=== PATIENT | female | born 1995 | race Caucasian/White ===

== ENCOUNTER 2017-09-19 17:19 | Inpatient (IN) | payer OTHER, BC ==
[2017-09-19 18:31] LABS: #Basophils 0.1 thou/uL (0.0-0.2); #Eosinphils 0.3 thou/uL (0.0-0.7); #Lymphocytes 3.7 thou/uL (1.20-3.40); #Monocytes 0.6 thou/uL (0.11-0.59); #Neutrophils 10.4 thou/uL (1.40-6.50); %Basophils 0.8 % (0.0-1.0); %Lymphocytes 24.3 % (21.0-51.0); %Monocytes 3.7 % (0.0-10.0); %Neutrophils 69.2 % (42.0-75.0); Hemoglobin 13.8 g/dL (12.0-16.0); Mean Corpuscular Hemoglobin 31.2 pg (27.0-31.0); Mean Corpuscular Volume 94.6 fl (81.0-99.0); Mean Platelet Volume 6.8 fL (7.4-10.4); Platelet Count 375 thou/uL (130-400); RBC Distribution Width 11.5 % (11.5-14.5); Red Blood Cell (RBC) Count 4.41 mill/uL (4.20-5.40)
[2017-09-19 18:51] LABS: ALT (SGPT) 13 U/L (8-55); AST (SGOT) 20 U/L (5-34); Albumin 4.6 g/dL (3.5-5.0); Alkaline Phosphatase 90 U/L (40-150); Anion Gap 12 mmol/L (10-20); BUN (Urea Nitrogen) 9 mg/dL (7.0-18.7); Bilirubin, Total 0.4 mg/dL (0.2-1.2); Calc. Creatinine Clearance 0 mL/min (70-130); Calcium 9.5 mg/dL (7.8-10.44); Carbon Dioxide 27 mmol/L (22-29); Chloride 101 mmol/L (98-107); Estimated GFR-MDRD 76; Globulin 3.4 g/dL (2.4-3.5); Glucose 113 mg/dL (70-105); Potassium 3.9 mmol/L (3.5-5.1); Sodium 136 mmol/L (136-145)
[2017-09-19] MEDS ORDERED: Morphine 4 MG/ML VIAL ONE (21:34)
[2017-09-19] MEDS ORDERED: cefTRIAXone\\ROCEPHIN 2 GM VIAL ONE (21:58)
[2017-09-20] MEDS ORDERED: Morphine 4 MG/ML VIAL SLOW IVP PRN (00:03)
[2017-09-20] MEDS ORDERED: Ondansetron ODT 4 MG TAB SL PRN (00:03)
[2017-09-20] MEDS ORDERED: Ondansetron HCl/PF 4 MG/2 ML Vial IVP PRN (00:03)
[2017-09-20] MEDS: Sodium Chloride 0.9% 1,000 ML IV SCH ×4 (01:01→16:23)
[2017-09-20] MEDS: HYDROcodone/Acetaminophen 5/325 mg Tablet PO PRN ×4 (02:10→21:03)
[2017-09-20 03:01] VITALS: BMI 20.7
[2017-09-20] MEDS: Ibuprofen 200 MG TAB PO PRN ×3 (04:48→19:45)
[2017-09-20] MEDS ORDERED: Phenazopyridine HCl 97.5 MG TABLET PO PRN (08:09)
[2017-09-20] MEDS ORDERED: Mag-Al 1200 mg/1200 mg/30 ML UDCUP PO PRN (08:09)
--- NOTE | 2017-09-20 09:17 | HP ---
PRIMARY CARE PHYSICIAN: Dr. Kyrie Eng CHIEF COMPLAINT: Urinary tract infection, fevers, chills, nausea, failed outpatient treatment. HISTORY OF PRESENT ILLNESS: This is a 22-year-old female patient with a history of frequent hospital izations for pyelonephritis. She has a history of vesicoureteral reflux with 2 implantation surgerie s in the past who first presented to Urgent Care about 8-10 days ago for urinary tract infection symp toms. She was given a dose of Rocephin and started on Cipro. After 3-4 days she got the culture elizabeth k and they called back and switched her antibiotics to Macrobid for E. coli bacteria that was resista nt to Cipro. Her symptoms continued to worsen. She developed chills, back pain and her typical symp toms of pyelonephritis. She first presented to the office and was sent to the emergency department f or admission at that time. She was given a dose of Rocephin in the emergency department and IV fluid s and she is feeling some better at this point. She is becoming more and more frustrated with these frequent episodes of pyelonephritis and wants to perform further workup at this time. Of note, she has been followed by Urology, Dr. Snider. She has had tests ordered in the past, b ut was not able to proceed with them due to cost and she is now willing to have those done. PAST MEDICAL HISTORY: 1. Again, urinary tract infection for many years, followed by Dr. Snider for Urology. 2. History of vesicoureteral reflux with history of 2 implantation surgeries in the past. 3. Polyarthralgias. 4. Anxiety and depression. MEDICATIONS: Sertraline 100 mg daily. She had been on Levaquin, but not anymore. PAST SURGICAL HISTORY: Implantation surgery for vesicoureteral reflux x2. ALLERGIES: None known. SOCIAL HISTORY: She lives at home with her mom and aunt. She is not working at this time. Positive smoking, no alcohol, occasional marijuana use. She has been sexually active. REVIEW OF SYSTEMS: As per the history of present illness. She denies any fevers, but has had chills . HEENT: No headache, visual or hearing changes. CARDIAC: No chest pain, shortness of breath. PULMONARY: No cough or hemoptysis. GASTROINTESTINAL: Positive nausea, no vomiting. : As per the history of present illness. NEUROLOGIC: No weakness, seizures, or syncope. PHYSICAL EXAMINATION: VITAL SIGNS: Temperature 98.1. Her T-max is 98.4, pulse of 65, respirations 20, blood pressure 140/ 91, pulse ox is 100% on room air. GENERAL: She is awake and alert, in no acute distress. Speech is clear. Mucosa is moist. NECK: Supple. HEART: Regular rate and rhythm. LUNGS: Clear. ABDOMEN: Soft. Positive CVA tenderness on the left. EXTREMITIES: No edema. LABORATORY DATA: White blood cell count 15,000, hemoglobin and hematocrit 13.8 and 41.8, platelets o f 375. Sodium 136, potassium 3.9, chloride 101, CO2 of 27, BUN and creatinine 9 and 0.93, serum gluc ose of 113. Lactic acid was normal at 1.4. Liver enzymes were normal as well. ASSESSMENT: This is a 22-year-old female patient with a history of vesicoureteral reflux status post surgical correction in the past and history of recurrent urinary tract infections and pyelonephritis , now with a recurrent episode. 1. We will continue IV antibiotics including Rocephin 1 gram daily. Await repeat cultures. 2. Vesicoureteral reflux. We will consult Urology for further evaluation, hopefully to be able to o btain a definitive treatment and prevention for her recurrent episodes. 3. Anxiety, depression. We will continue her Zoloft at this time.
[2017-09-20] MEDS: cefTRIAXone\\ROCEPHIN 2 GM in Sodium Chloride 0.9% 100 ML IVPB SCH (22:39)
--- NOTE | 2017-09-20 23:51 | CON ---
DATE OF CONSULTATION: 09/20/2017 REASON FOR CONSULTATION: Recurrent pyelonephritis. HISTORY OF PRESENT ILLNESS: Ms. Tello is a 22-year-old female who has a history of vesicoureteral reflux. She had surgery twice for her reflux, once at approximately 6 months of age and once at approximately 4 years of age. She now states that she has infections approximately 4-5 times a year. She has had hospital admissions for infections. Most recent admission was in 01/2017. Last week she developed urinary frequency, urgency and bladder pain. She was seen at [facility] and urine culture was performed and she began taking Cipro. Her urine culture demonstrated E. coli and it was resistant to Cipro, so this antibiotic was discontinued and Macrobid was initiated. She felt somewhat better, but she began developng bilateral flank pain L>R, despite the antibiotic therapy. For this reason, she presented to the emergency room. This is a common indication for admission for her and that her kidney pain can worsen to the point that she needs narcotic pain medication. Her left-sided pain is greater than the right-sided pain, although she does have bilateral flank pain. She has not had recent urologic workup. She was seen by Dr. Snider in 01/2017 during her last admission and also in 12/2015, however, Dr. Snider states she will no longer provide care for this patient due to the patients lack of compliance. PAST MEDICAL HISTORY: Polyarthralgias, anxiety, recurrent urinary tract infections. CURRENT MEDICATIONS: Zoloft 100 mg daily. PAST SURGICAL HISTORY: Bilateral ureteral reimplant surgery at age approximately 6 months and also at approximately 4 years. SOCIAL HISTORY: She denies alcohol use. She does smoke cigarettes. She is sexually active. REVIEW OF SYSTEMS: RESPIRATORY: Denies shortness of breath. CARDIOVASCULAR: Denies chest pain or palpitation. GASTROINTESTINAL: Denies chronic constipation or diarrhea. GENITOURINARY: Please see history of present illness. NEUROLOGIC: She has a history of depression, but no other neurologic diseases. PHYSICAL EXAMINATION: GENERAL: She is awake and alert. She is in no distress. VITAL SIGNS: Temperature 99.2, blood pressure 138/82, pulse 82. GENERAL: She appears healthy, in no distress. CHEST: Clear to auscultation. CARDIOVASCULAR: Regular rate and rhythm. ABDOMEN: Soft, nontender, no palpable masses. Liver and spleen are palpable. No abdominal tenderness noted. Mild tenderness on palpation left flank. LABORATORY DATA: White blood cell count on admission 15,000. Creatinine 0.93. Urine culture on 09/11/2017 was 10-25,000 colonies E. coli sensitive to amikacin , cefepime, ceftriaxone, cefoxitin, gentamicin, meropenem, Macrobid, Zosyn, tobramycin, resistant to Bactrim, cipro and ampicillin. IMPRESSION: Ms. Tello is a 22-year-old female with recurrent urinary tract infection and prior history of vesicoureteral reflux. She has not had recent evaluation urinary tract from an imaging standpoint. PLAN: 1. CT IVP to evaluate upper urinary tracts. 2. Begin an antibiotic prophylactic regimen if no correctable sources of recurrent urinary tract infections noted on the CT IVP. MAYLIND
[2017-09-21] MEDS: Sodium Chloride 0.9% 1,000 ML IV SCH ×2 (01:54→08:54)
[2017-09-21] MEDS: HYDROcodone/Acetaminophen 5/325 mg Tablet PO PRN ×4 (06:25→21:44)
[2017-09-21 08:48] LABS: BHCG - Serum Negative (NEGATIVE); Pregs Control Background? CLEAR/WHITE (CLR/WHITE); Pregs Control Bar Appear? YES (CONTROL BAR)
[2017-09-21] MEDS ORDERED: hydrOXYzine 25 MG TAB PO PRN (09:00)
[2017-09-21] MEDS ORDERED: Promethazine 25 MG TAB PO PRN (11:38)
[2017-09-21] MEDS ORDERED: Promethazine HCl 25 MG/ML VIAL IM/IV PRN (11:38)
[2017-09-21] MEDS ORDERED: ISOVUE-370 76%-LOCM 1 ML ONE (13:23)
[2017-09-21] MEDS: Ibuprofen 200 MG TAB PO PRN (14:00)
--- NOTE | 2017-09-21 17:08 | CT ---
CT OF THE ABDOMEN AND PELVIS WITH AND WITHOUT IV CONTRAST: 09/21/17 INDICATION; Recurrent pyelonephritis. COMPARISON: None. FINDINGS: There is edematous changes and mild hypertrophy involving the right kidney. No definite striated neph rogram is grossly evident. No hydronephrosis is noted. No renal stone is demonstrated. There is corti esvin thinning involving portions of the left kidney which may reflect sequela of prior trauma or infec tion. Unopacified bladder is unremarkable. There is a 1.8 cm cyst within the right ovary. Mild free fluid i s seen within the pelvis. Small amount of free fluid is seen in the lower aspect of the colonic gutte rs. There is a moderate amount of retained stool within the colon. The cecum crosses midline within t he lower abdomen. The appendix is not definitely seen. The liver, spleen, pancreas and adrenal glands appear normal. There are layered gallstones in the ga llbladder. No lymphadenopathy is evident. No free air is demonstrated. No acute osseous abnormality is evident. IMPRESSION: 1. Edematous changes and hypertrophy of the right kidney on the noncontrast examination with luisa y mild perinephric stranding is suspicious for pyelonephritis. 2. Layered gallstones within the gallbladder. 3. There is thinning involving portions of the cortex of the left kidney suspicious for prior tr auma or infection. 4. Mild free fluid within the pelvis. 5. 1.8 cm right ovarian follicular cyst. POS: [facility]
--- NOTE | 2017-09-21 17:32 | RAD ---
IVP: 09/21/17 INDICATION: Recurrent pyelonephritis. COMPARISON: CT IVP examination 09/21/17, 4:46 p.m. FINDINGS: There is symmetric bilateral renal excretion seen at 5 minutes. The segmentally opacified left ureter appears within normal limits. The segmentally opacified right ureter on the LPO 10 minute projection appears within normal limits. No focal filling defect, stricture or hydronephrosis is evident. The visualized aspects of the opacified bladder appear within normal limits. There is mild postvoid r esidual seen within the renal collecting systems and bladder. The visualized bowel gas pattern is unobstructed. No acute osseous abnormality is evident. IMPRESSION: No focal filling defect, stricture, or hydronephrosis involving the renal collecting systems. POS: [facility]
[2017-09-21] MEDS ORDERED: Morphine 4 MG/ML VIAL SLOW IVP SCH (18:45)
[2017-09-21] MEDS: cefTRIAXone\\ROCEPHIN 2 GM in Sodium Chloride 0.9% 100 ML IVPB SCH (21:44)
[2017-09-21] MEDS: Ketorolac Tromethamine 10 MG TAB PO SCH (23:58)
[2017-09-21] MEDS: traZODone HCl 50 MG TAB PO PRN (23:58)
--- NOTE | 2017-09-22 00:24 | PRG ---
DATE OF SERVICE: 09/21/2017 HISTORY OF PRESENT ILLNESS: The patient states she continues to have flank pain and abdomen pain nichole pite continuation of home Pierce doses. This on day 2 of Rocephin regarding recurrent pyelonephritis. Urology has recommended CT with IVP protocol for structural analysis as the patient stabilized no a cute findings on imaging, recommending prophylaxis in the future. PHYSICAL EXAMINATION: VITAL SIGNS: Temperature of 97.5, pulse of 60, respiratory rate of 18, oxygen saturation 97% on room air, blood pressure 133/88. GENERAL: The patient is alert and oriented, in no acute distress. HEENT: Head is normocephalic, atraumatic. Extraocular movements are intact. Sclerae is clear. Ora l mucosa is moist. HEART: Regular rate and rhythm. LUNGS: Clear to auscultation bilaterally. No rubs or wheezes. ABDOMEN: Soft, nontender, positive bowel sounds throughout. EXTREMITIES: Lower extremities without cyanosis or edema. No formal CVA tenderness. Patient report s some left-sided back pain with palpation; however, the patient requesting something for sleep, typi lala uses NyQuil or ZzzQuil. Nursing staff reported some nausea. ASSESSMENT AND PLAN: Recurrent pyelonephritis, flank pain, nausea, insomnia. Continuing patient's h ome medications, adding hydroxyzine for sleep. Transitioning ibuprofen and Toradol. We will monitor renal function in a.m. with some repeat laboratory work, continue Rocephin, following up on any jaron tional recommendations from Neurology as no further interventions, likely discharge home tomorrow.
[2017-09-22 05:24] LABS: #Basophils 0.1 thou/uL (0.0-0.2); #Eosinphils 0.4 thou/uL (0.0-0.7); #Lymphocytes 3.8 thou/uL (1.20-3.40); #Monocytes 0.5 thou/uL (0.11-0.59); #Neutrophils 5.9 thou/uL (1.40-6.50); %Basophils 0.5 % (0.0-1.0); %Eosinophils 3.9 % (0.0-10.0); %Lymphocytes 35.6 % (21.0-51.0); %Monocytes 4.5 % (0.0-10.0); %Neutrophils 55.4 % (42.0-75.0); Hemoglobin 12.5 g/dL (12.0-16.0); Mean Corpuscular HGB CONC 32.9 g/dL (32.0-36.0); Mean Corpuscular Volume 94.3 fl (81.0-99.0); Mean Platelet Volume 6.7 fL (7.4-10.4); Platelet Count 320 thou/uL (130-400); RBC Distribution Width 11.7 % (11.5-14.5); Red Blood Cell (RBC) Count 4.02 mill/uL (4.20-5.40); White Blood Cell (WBC) Count 10.7 thou/uL (4.8-10.8)
[2017-09-22] MEDS: Ketorolac Tromethamine 10 MG TAB PO SCH ×4 (05:43→23:49)
[2017-09-22 05:59] LABS: ALT (SGPT) 11 U/L (8-55); AST (SGOT) 14 U/L (5-34); Albumin 3.6 g/dL (3.5-5.0); Alkaline Phosphatase 74 U/L (40-150); Anion Gap 11 mmol/L (10-20); BUN (Urea Nitrogen) 8 mg/dL (7.0-18.7); Bilirubin, Total 0.2 mg/dL (0.2-1.2); Calc. Creatinine Clearance 88 mL/min (70-130); Calcium 9.1 mg/dL (7.8-10.44); Carbon Dioxide 27 mmol/L (22-29); Chloride 106 mmol/L (98-107); Estimated GFR-MDRD Greater than 90; Globulin 2.6 g/dL (2.4-3.5); Glucose 83 mg/dL (70-105); Potassium 3.8 mmol/L (3.5-5.1); Protein, Total 6.2 g/dL (6.0-8.3); Sodium 140 mmol/L (136-145)
[2017-09-22] MEDS ORDERED: hydrOXYzine 25 MG TAB PO PRN (07:57)
[2017-09-22] MEDS: HYDROcodone/Acetaminophen 5/325 mg Tablet PO PRN ×2 (14:52→22:20)
[2017-09-22] MEDS: cefTRIAXone\\ROCEPHIN 2 GM in Sodium Chloride 0.9% 100 ML IVPB SCH (22:21)
--- NOTE | 2017-09-22 23:24 | PRG ---
DATE OF SERVICE: 09/22/2017 CHIEF COMPLAINT: She had a severe episode of right-sided flank pain yesterday. SUBJECTIVE: She is feeling better now. OBJECTIVE: VITAL SIGNS: T-max 99, blood pressure 120/82, pulse 82, respiratory rate 16. ABDOMEN: Soft, nontender, no CVA tenderness. IMPRESSION: Ms. Tello is status post CCIVP. Her urinary tract drains well. There is no hydronephr osis or ureteronephrosis. This suggests she has minimal or no persistent vesicoureteral reflux. The re is no stone disease. RECOMMENDATIONS: Continue IV antibiotic therapy until she is feeling well. After discharge, she mark l be maintained on long-term antibiotic prophylactic therapy with Macrobid 1 p.o. daily. We will als o arrange for a standing urine culture request, so this can be done if she develops any symptoms. Th ere is no surgical recommendations based on her normal anatomy. I have discussed this with both the patient and with her mom.
[2017-09-22] MEDS: traZODone HCl 50 MG TAB PO PRN (23:50)
--- NOTE | 2017-09-23 01:05 | PRG ---
DATE OF SERVICE: 09/22/2017 HISTORY OF PRESENT ILLNESS: The patient reports better pain control following change from ibuprofen to Toradol and continuation of patient's home hydrocodone. The patient had improved sleep on hydroxy zine last night, feeling better with IV antibiotics, states urology did not come by and nursing staff confirms Urology did not come by yesterday following a CT IVP per request, spoke with the patient in regard to a goal of 3 days of IV antibiotics, likely discharge home tomorrow on oral agents. No fur ther recommendations from Urology. Vital signs this morning temperature 97.7, pulse is 75, respirato ry rate of 16, oxygen saturation 93% on room air, blood pressure 131/80. LABORATORY DATA: White blood cell count of 10.7, improved; hemoglobin of 12.5; platelet count of 320 ,000, glucose 83. Sodium 140, potassium of 3.8, CO2 of 27, creatinine of 0.77. AST of 14, ALT of 11 . Serum test negative. Currently likely right pyelonephritis and left-sided likely scar t issue following previous pyelonephritis found on CT abdomen and pelvis. IVP protocol did not show an y significant reflux. PHYSICAL EXAMINATION: GENERAL: The patient is alert and oriented, in no acute distress. HEENT: Head is normocephalic, atraumatic. Extraocular movements are intact. Sclerae are clear. Or al mucosa is moist. NECK: Supple. LUNGS: Clear to auscultation bilaterally. No rubs or wheezes. HEART: Regular rate and rhythm. No murmurs auscultated. ABDOMEN: Soft, nontender, positive bowel sounds throughout. No CVA tenderness bilaterally. EXTREMITIES: Lower extremities without cyanosis or edema. NEUROLOGIC: The patient alert and oriented x3. No focal deficits. ASSESSMENT AND PLAN: Pyelonephritis, recurrent. Await any further instructions from Urology. Antic ipate likely discharge tomorrow with oral agents. We will attempt to check out to Adam florez
[2017-09-23] MEDS: Ketorolac Tromethamine 10 MG TAB PO SCH (06:07)
--- NOTE | 2017-09-23 08:22 | DIS ---
DATE OF ADMISSION: 09/19/2017 DATE OF DISCHARGE: 09/23/2017 ADMISSION DIAGNOSES: Pyelonephritis, history of recurrent urinary tract infection, history of vesico ureteral efflux. DISCHARGE DIAGNOSIS: Pyelonephritis, resolved. CONSULTATIONS: Dr. Fuentes for Urology. PROCEDURES: CT abdomen and pelvis, intravenous pyelogram, IV antibiotics. HOSPITAL COURSE: This is a 22-year-old female patient with history of frequent episodes and hospital izations for pyelonephritis. She has a history of vesicoureteral reflux with 2 implantation surgerie s in the past, starting at a few months of age. She had a recent admission a few months ago for pyel onephritis. A workup has been attempted as an outpatient, but the patient had refused that due to co st, she is now wanting to have further urological workup. She was admitted and started on IV antibio tics after failed outpatient therapy. She had some improvement of her symptoms with IV Rocephin. Bl ood and urine cultures were done. Dr. Fuentes saw the patient in evaluation and agreed with evaluati on for possible persistent reflux. He recommended a CT IVP, continued antibiotics and recommended lo ng-term antibiotics following discharge. The patient had one episode of more severe pain and urinary urgency. This resolved and for the past 24 hours, she has been feeling much better, no more nausea or vomiting. She is tolerating fluids, minimal pain, tolerating antibiotics and wanted to go home at this point. DISCHARGE PHYSICAL EXAMINATION: VITAL SIGNS: Temperature 98.1, T-max of 98.3, pulse of 70, respirations 18, blood pressure 131/84, p ulse oximetry is 95% on room air. GENERAL: She is awake and alert, in no acute distress. Mucosa is moist. NECK: Supple. HEART: Regular rate and rhythm. LUNGS: Clear. ABDOMEN: With positive bowel sounds, soft, nontender, nondistended. No CVA tenderness. DISCHARGE MEDICATIONS: Include Macrobid 100 mg daily. Continue Zoloft 100 mg daily. FOLLOWUP: Follow up in my office in 1-2 weeks. Follow up with Dr. Fuentes in 2 weeks. He is going to arrange standing orders for urine culture, so if her symptoms start, leave a urine sample and ofe t the urinary tract infection before it progresses to a pyelonephritis in the future.
[2017-09-23 10:16] VITALS: BP 129/83; TEMP 98.5
== END 2017-09-23 10:36 | disposition home or self-care (01) | DRG 690 ==
LOC: ERS 17:19 → 3SE 21:30 → T4-B 09-21 17:22
PROVIDERS: ADMIT Family Medicine; ATTEND Family Medicine
DX: N11.0 Nonobstructive reflux-associated chronic pyelonephritis (principal); B96.20 Unspecified Escherichia coli [E. coli] as the cause of diseases classified elsewhere; M25.50 Pain in unspecified joint; F29 Unspecified psychosis not due to a substance or known physiological condition; F41.9 Anxiety disorder, unspecified; Z79.2 Long term (current) use of antibiotics; F17.210 Nicotine dependence, cigarettes, uncomplicated; F12.90 Cannabis use, unspecified, uncomplicated; G47.00 Insomnia, unspecified; Z16.23 Resistance to quinolones and fluoroquinolones; Z79.899 Other long term (current) drug therapy
CPT/HCPCS: 36415; 74178; 74410; 80053; 83605; 84703; 85025; 87086; 96365; 96375; 99406; A4216; J0696; J2270; J7050

== ENCOUNTER 2017-10-10 17:11 | Observation (INO) | payer OTHER, BC ==
[2017-10-10 17:39] LABS: Bilirubin Negative (Negative); Blood, Urine Negative (Negative); Clarity CLEAR (Clear); Glucose, Urine (Dipstick) Negative (Negative); Leukocyte Negative (Negative); Nitrite Negative (Negative); Protein, Urine (Dipstick) Negative (Neg-Trace); Specific Gravity, Urine 1.008 (1.002-1.036); Urobilinogen 0.2 mg/dL (0.2-1.0); pH, Urine 6.5 (5.0-9.0)
[2017-10-10 17:43] LABS: Pregnancy Test - Urine (BHCG) Negative (Negative); Pregu Control Background? CLEAR/WHITE (CLR/WHITE); Pregu Control Bar Appear? YES (CONTROL BAR); Specific Gravity 1.008 (1.002-1.036)
[2017-10-10 18:38] LABS: #Basophils 0.1 thou/uL (0.0-0.2); #Eosinphils 0.1 thou/uL (0.0-0.7); #Lymphocytes 3.2 thou/uL (1.20-3.40); #Monocytes 0.6 thou/uL (0.11-0.59); #Neutrophils 10.2 thou/uL (1.40-6.50); %Basophils 0.6 % (0.0-1.0); %Eosinophils 0.9 % (0.0-10.0); %Lymphocytes 22.7 % (21.0-51.0); %Monocytes 3.9 % (0.0-10.0); Hemoglobin 13.4 g/dL (12.0-16.0); Mean Corpuscular Hemoglobin 31.7 pg (27.0-31.0); Mean Corpuscular Volume 93.3 fl (81.0-99.0); Mean Platelet Volume 6.7 fL (7.4-10.4); Platelet Count 353 thou/uL (130-400); Red Blood Cell (RBC) Count 4.23 mill/uL (4.20-5.40); White Blood Cell (WBC) Count 14.2 thou/uL (4.8-10.8)
[2017-10-10 18:57] LABS: Anion Gap 13 mmol/L (10-20); BUN (Urea Nitrogen) 11 mg/dL (7.0-18.7); Calc. Creatinine Clearance 0 mL/min (70-130); Calcium 10.2 mg/dL (7.8-10.44); Carbon Dioxide 23 mmol/L (22-29); Chloride 105 mmol/L (98-107); Estimated GFR-MDRD 63; Glucose 76 mg/dL (70-105); Potassium 3.8 mmol/L (3.5-5.1); Sodium 137 mmol/L (136-145)
[2017-10-10] MEDS ORDERED: Morphine 10 MG/ML VIAL ONE ×2 (19:16→20:24)
[2017-10-10] MEDS ORDERED: Ondansetron ODT 4 MG TAB SL PRN (22:15)
[2017-10-10 22:16] VITALS: BMI 20.7
[2017-10-10] MEDS: Ondansetron HCl/PF 4 MG/2 ML Vial IVP PRN (23:00)
[2017-10-10] MEDS: Dextrose 5 % And 0.9 % NaCl 1,000 ML IV SCH (23:00)
[2017-10-10] MEDS ORDERED: Naproxen 500 MG TAB PO PRN (23:23)
[2017-10-10] MEDS ORDERED: Ibuprofen 800 MG TAB PO PRN ×2 (23:26→23:30)
[2017-10-10] MEDS: Morphine 4 MG/ML VIAL IV PRN (23:35)
[2017-10-11] MEDS: Morphine 4 MG/ML VIAL IV PRN ×2 (03:10→05:49)
[2017-10-11] MEDS: Ondansetron HCl/PF 4 MG/2 ML Vial IVP PRN (05:50)
[2017-10-11] MEDS ORDERED: CEFAZOLIN/Water 2 GM/20 ML SYRINGE SLOW IVP SCH (07:30)
[2017-10-11 07:39] LABS: #Eosinphils 0.3 thou/uL (0.0-0.7); #Lymphocytes 2.8 thou/uL (1.20-3.40); #Monocytes 0.6 thou/uL (0.11-0.59); #Neutrophils 6.1 thou/uL (1.40-6.50); %Basophils 0.3 % (0.0-1.0); %Eosinophils 3.2 % (0.0-10.0); %Lymphocytes 28.3 % (21.0-51.0); %Monocytes 6.3 % (0.0-10.0); %Neutrophils 61.9 % (42.0-75.0); Mean Corpuscular HGB CONC 33.4 g/dL (32.0-36.0); Mean Corpuscular Hemoglobin 31.5 pg (27.0-31.0); Mean Corpuscular Volume 94.3 fl (81.0-99.0); Mean Platelet Volume 6.4 fL (7.4-10.4); Platelet Count 268 thou/uL (130-400); RBC Distribution Width 11.9 % (11.5-14.5); Red Blood Cell (RBC) Count 3.81 mill/uL (4.20-5.40); White Blood Cell (WBC) Count 9.9 thou/uL (4.8-10.8)
[2017-10-11 08:18] VITALS: BP 122/76; TEMP 98.3
[2017-10-11] MEDS ORDERED: Morphine 4 MG/ML VIAL ONE (09:37)
[2017-10-11] MEDS ORDERED: CEFAZOLIN/Water 2 GM/20 ML SYRINGE ONE (09:38)
[2017-10-11] MEDS ORDERED: Morphine 4 MG/ML VIAL SLOW IVP PRN (09:56)
[2017-10-11] MEDS: Dextrose 5 % And 0.9 % NaCl 1,000 ML IV SCH (10:40)
[2017-10-11] MEDS ORDERED: Nicotine 21 MG PATCH TOP SCH (11:30)
[2017-10-11] MEDS ORDERED: Fentanyl 100 MCG/2 ML VIAL ONE ×2 (11:42→12:41)
[2017-10-11] MEDS ORDERED: Ondansetron HCl/PF 4 MG/2 ML Vial IVP PRN (12:18)
[2017-10-11] MEDS ORDERED: Promethazine HCl 25 MG/ML VIAL IM PRN (12:18)
[2017-10-11] MEDS ORDERED: Promethazine HCl 25 MG/ML VIAL SLOW IVP PRN (12:18)
[2017-10-11] MEDS ORDERED: Ketorolac Tromethamine 30 MG/ML VIAL ONE (12:44)
[2017-10-11] MEDS ORDERED: PROPOFOL 200 MG/20 ML VIAL ONE (13:57)
[2017-10-11] MEDS ORDERED: Lidocaine 1% PF 5 ML VIAL ONE (13:57)
[2017-10-11] MEDS ORDERED: Ondansetron HCl/PF 4 MG/2 ML Vial ONE (13:57)
--- NOTE | 2017-11-01 13:54 | OP ---
PREOPERATIVE DIAGNOSIS: Right breast abscess. SURGEON: Anthony Holguin M.D. PROCEDURE PERFORMED: Incision and drainage of right breast abscess. INDICATIONS: A 22-year-old female who had had a recent nipple piercing on the right side that got in fected, progressive pain and swelling. FINDINGS: About 2 cm abscess upper inner quadrant of the right breast areola. PROCEDURE: After informed consent was obtained, the patient was taken to the operating room, given g eneral endotracheal anesthesia. She was placed in supine position. Her right breast was prepped and draped in usual fashion. A circumareolar incision was performed releasing purulent fluid. This was cultured. The cavity was opened thoroughly with utilizing electrocautery and hemostat. The cavity was irrigated thoroughly. Hemostasis achieved with electrocautery. Again, irrigated, and packed ope n with Betadine gauze. Sterile bandage applied. The patient tolerated the procedure well and was tr ansferred to recovery in good condition. Sponge and needle count verified correct x2.
== END 2017-10-11 13:42 | disposition home or self-care (01) ==
LOC: ERS 17:11 → 2SW 21:18
PROVIDERS: ADMIT Surgery; ATTEND Surgery
PROC: 0H9T0ZZ Drainage of Right Breast, Open Approach (ICD-10-PCS; principal; 2017-10-11)
DX: N61.1 Abscess of the breast and nipple (principal); F41.9 Anxiety disorder, unspecified; F32.9 Major depressive disorder, single episode, unspecified; Z79.2 Long term (current) use of antibiotics; Z79.899 Other long term (current) drug therapy; Z91.018 Allergy to other foods
CPT/HCPCS: 36415; 80048; 81003; 81025; 85025; 87070; 87076; 87205; 96361; 96365; 96374; 96375; 96376; G0378; J1885; J1956; J2001; J2270; J2405; J2704; J3010; J3370

== ENCOUNTER 2018-01-16 17:11 | Observation (INO) | payer OTHER ==
[2018-01-16 20:01] LABS: #Basophils 0.1 thou/uL (0.0-0.2); #Eosinphils 0.2 thou/uL (0.0-0.7); #Lymphocytes 3.9 thou/uL (1.20-3.40); #Monocytes 0.6 thou/uL (0.11-0.59); %Monocytes 4.7 % (0.0-10.0); %Neutrophils 59.4 % (42.0-75.0); Hemoglobin 13.2 g/dL (12.0-16.0); Mean Corpuscular HGB CONC 34.1 g/dL (32.0-36.0); Mean Corpuscular Hemoglobin 32.1 pg (27.0-31.0); Mean Corpuscular Volume 94.3 fL (78.0-98.0); Mean Platelet Volume 7.3 fL (7.4-10.4); Platelet Count 339 thou/uL (130-400); Red Blood Cell (RBC) Count 4.12 mill/uL (4.20-5.40); White Blood Cell (WBC) Count 11.8 thou/uL (4.8-10.8)
[2018-01-16 20:20] LABS: Anion Gap 13 mmol/L (10-20); BUN (Urea Nitrogen) 9 mg/dL (7.0-18.7); Calc. Creatinine Clearance 0 mL/min (70-130); Calcium 9.4 mg/dL (7.8-10.44); Carbon Dioxide 22 mmol/L (22-29); Chloride 107 mmol/L (98-107); Estimated GFR-MDRD 82; Glucose 82 mg/dL (70-105); Potassium 3.7 mmol/L (3.5-5.1); Sodium 138 mmol/L (136-145)
[2018-01-16] MEDS ORDERED: CEFAZOLIN 1 GM VIAL ONE (22:12)
[2018-01-16] MEDS ORDERED: Sodium Chloride 0.9% 100 ML ONE (22:12)
--- NOTE | 2018-01-16 22:16 | ULT ---
LIMITED ULTRASOUND RIGHT BREAST 01/16/18 HISTORY: Focal area of pain, redness, and firmness in the retroareolar region right breast with drainage at th e nipple. History of prior surgery for abscess in the right breast. FINDINGS: There is a heterogeneous collection seen in the right breast in a retroareolar region in the level of the nipple. This collection measures 2.3 cm x 1.1 cm x 2 cm. Flow is seen surrounding the collection . Findings may be related to abscess given history. Hematoma could given similar appearance. However, followup evaluation is recommended to ensure resolution of this complex cystic structure. IMPRESSION: Complex cystic mass-like structure seen in the retroareolar region with overlying mild skin thickenin g. The greatest dimension of this cystic structure is 2.3 cm. This could be related to small abscess collection, but hematoma could give a similar appearance. Followup evaluation is recommended to ensur e complete resolution. POS: [facility]
[2018-01-16] MEDS ORDERED: Morphine 4 MG/ML VIAL ONE (22:44)
[2018-01-16] MEDS ORDERED: Ondansetron HCl/PF 4 MG/2 ML Vial ONE (22:44)
[2018-01-16] MEDS ORDERED: HYDROcodone/Acetaminophen 5/325 mg Tablet PO PRN (23:14)
[2018-01-16] MEDS ORDERED: Acetaminophen 325 MG TAB PO PRN (23:14)
[2018-01-16] MEDS ORDERED: Ondansetron HCl/PF 4 MG/2 ML Vial IVP PRN (23:14)
[2018-01-16] MEDS ORDERED: Ondansetron ODT 4 MG TAB SL PRN (23:14)
[2018-01-16 23:37] VITALS: BMI 19.7
[2018-01-17] MEDS: HYDROcodone/Acetaminophen 5/325 mg Tablet PO PRN ×2 (00:14→07:10)
[2018-01-17] MEDS: Sodium Chloride 0.9% 1,000 ML IV SCH ×2 (00:16→07:13)
[2018-01-17] MEDS ORDERED: CEFAZOLIN 1 GM in Sodium Chloride 0.9% 100 ML IVPB SCH (06:00)
[2018-01-17] MEDS ORDERED: Vancomycin HCl 1 GM in Premix Bag 1 BAG IVPB SCH (08:00)
--- NOTE | 2018-01-17 08:28 | HP ---
CHIEF COMPLAINT: Right breast pain. HISTORY OF PRESENT ILLNESS: A 22-year-old female who underwent an I&D of the right breast in October r a breast abscess. She was doing well until the last few days when she has been having increasing p ain and swelling and ultrasound shows a recurrent breast abscess. PAST MEDICAL HISTORY: Pyelonephritis. PAST SURGICAL HISTORY: She has had ureteral reimplantation x2. MEDICATIONS: Macrobid, sertraline, amoxicillin, Z-ABIGAIL, ____. ALLERGIES: No known drug allergies. SOCIAL HISTORY: She is single, self-employed, smokes one-half pack per day. No alcohol. FAMILY HISTORY: Rheumatoid and lupus. PHYSICAL EXAMINATION: VITAL SIGNS: Temperature 97.9, pulse 91, blood pressure 125/81. GENERAL: Thin female in minimal distress. HEENT: Unremarkable. LUNGS: Clear. HEART: Regular rate and rhythm. BREAST: She has got a swollen, tender central breast. LABORATORY AND X-RAY FINDINGS: Her white count 11.8, H&H 13 and 38, platelet count of 339. Electrol ytes are fine. She had an ultrasound showing a complex mass consistent with recurrent abscess measur ed at 2.3 cm in the retroareolar region. ASSESSMENT: Recurrent breast abscess. PLAN: I&D. CONSENT: I have discussed the planned procedure as well as risk of bleeding, infection, recurrence. She understands and gives informed consent.
[2018-01-17] MEDS ORDERED: Fentanyl 100 MCG/2 ML VIAL ONE ×2 (13:44→14:13)
[2018-01-17] MEDS ORDERED: Bupivacaine/Epinephrine 0.25% 30 ML VIAL ONE (13:47)
[2018-01-17] MEDS ORDERED: Ondansetron HCl/PF 4 MG/2 ML Vial IVP PRN (14:29)
[2018-01-17] MEDS ORDERED: HYDROcodone/Acetaminophen 10/325 mg Tablet PO PRN (14:29)
[2018-01-17] MEDS ORDERED: Ondansetron HCl/PF 4 MG/2 ML Vial ONE (14:41)
[2018-01-17] MEDS ORDERED: PROPOFOL 200 MG/20 ML VIAL ONE (14:41)
[2018-01-17] MEDS ORDERED: diphenhydrAMINE 50 MG/ML VIAL ONE (14:54)
[2018-01-17 17:31] VITALS: BP 122/81; TEMP 97.9
--- NOTE | 2018-01-17 18:13 | OP ---
PREOPERATIVE DIAGNOSIS: Recurrent right breast abscess. SURGEON: Anthony Holguin M.D. PROCEDURE PERFORMED: Incision and drainage with breast biopsy. INDICATIONS: The patient is a 22-year-old female, who about 9 months ago had a nipple piercing that caused an infection in her right breast. She had an I&D performed and was doing well until the last few days when she has had progressive pain as well as drainage from the nipple. An ultrasound showed complex fluid collections consistent with an abscess. FINDINGS: About a 3 cm abscess just underneath the areola complex with very foul smelling greenish c olored purulent fluid. PROCEDURE IN DETAIL: After informed consent was obtained, the patient was taken to the operating idania m and given general mask anesthesia, placed in supine position. Her right breast was prepped and denis ped in usual fashion. Local anesthesia infiltrated subcutaneously and deep with 0.5% Marcaine. A cu rvilinear circumareolar incision was performed releasing this purulent green fluid. Cultures were ob tained. The incision further extended and the cavity thoroughly irrigated. Hemostasis achieved with electrocautery. A piece of breast tissue just underneath that abscess was removed for biopsy. Hemo stasis assured with electrocautery. Again, the wound irrigated, packed open with Betadine gauze, lef t open. Sterile bandage applied. The patient tolerated the procedure well and was transferred to [facility] in good condition. Sponge and needle count verified correct x2.
== END 2018-01-17 17:25 | disposition home or self-care (01) ==
LOC: ERS 17:11 → SURG B 22:11
PROVIDERS: ADMIT Surgery; ATTEND Surgery
PROC: 0H9T0ZX Drainage of Right Breast, Open Approach, Diagnostic (ICD-10-PCS; principal; 2018-01-17)
PROC: 0HBT0ZX Excision of Right Breast, Open Approach, Diagnostic (ICD-10-PCS; 2018-01-17)
DX: N61.1 Abscess of the breast and nipple (principal); B96.89 Other specified bacterial agents as the cause of diseases classified elsewhere; F17.210 Nicotine dependence, cigarettes, uncomplicated; Z79.2 Long term (current) use of antibiotics; Z79.899 Other long term (current) drug therapy; Z91.018 Allergy to other foods; Z98.890 Other specified postprocedural states
CPT/HCPCS: 80048; 85025; 87070; 87205; 88304; 96361; 96365; 96375; G0378; J0690; J1200; J2270; J2405; J2704; J3010; J3370; J7050

== ENCOUNTER 2018-08-31 15:30 | Emergency (ER) | payer OTHER ==
[~2018-08-31 15:30] MED LIST: Iopamidol 370 76% 100 ML VIAL ONE
[2018-08-31 16:02] LABS: PTT 29.7 SEC (22.9-36.1); Prothrombin Time 12.9 SEC (12.0-14.7)
[2018-08-31 16:04] LABS: #Basophils 0.1 thou/uL (0.0-0.2); #Lymphocytes 1.5 thou/uL (1.20-3.40); #Monocytes 0.3 thou/uL (0.11-0.59); #Neutrophils 14.8 thou/uL (1.40-6.50); %Basophils 0.4 % (0.0-1.0); %Eosinophils 0.1 % (0.0-10.0); %Lymphocytes 8.9 % (21.0-51.0); %Neutrophils 88.6 % (42.0-75.0); Hemoglobin 13.1 g/dL (12.0-16.0); Mean Corpuscular HGB CONC 32.3 g/dL (32.0-36.0); Mean Corpuscular Hemoglobin 30.3 pg (27.0-31.0); Mean Corpuscular Volume 93.8 fL (78.0-98.0); Mean Platelet Volume 5.8 fL (7.4-10.4); Platelet Count 339 thou/uL (130-400); Red Blood Cell (RBC) Count 4.32 mill/uL (4.20-5.40); White Blood Cell (WBC) Count 16.8 thou/uL (4.8-10.8)
[2018-08-31 16:09] LABS: BHCG - Serum Negative (NEGATIVE); Pregs Control Background? CLEAR/WHITE (CLR/WHITE); Pregs Control Bar Appear? YES (CONTROL BAR)
[2018-08-31 16:12] LABS: ALT (SGPT) 18 U/L (8-55); AST (SGOT) 19 U/L (5-34); Albumin 4.6 g/dL (3.5-5.0); Alkaline Phosphatase 81 U/L (40-150); Anion Gap 14 mmol/L (10-20); BUN (Urea Nitrogen) 11 mg/dL (7.0-18.7); Bilirubin, Total 0.3 mg/dL (0.2-1.2); Calc. Creatinine Clearance 0 mL/min (70-130); Calcium 9.8 mg/dL (7.8-10.44); Carbon Dioxide 25 mmol/L (22-29); Chloride 106 mmol/L (98-107); Estimated GFR-MDRD 74; Globulin 3.1 g/dL (2.4-3.5); Glucose 110 mg/dL (70-105); Lipase 20 U/L (8-78); Potassium 4.4 mmol/L (3.5-5.1); Protein, Total 7.7 g/dL (6.0-8.3); Sodium 141 mmol/L (136-145)
[2018-08-31] MEDS ORDERED: Loperamide HCl 2 MG CAP ONE (16:25)
[2018-08-31] MEDS ORDERED: Ondansetron PF 4 MG/2 ML Vial ONE (16:26)
[2018-08-31] MEDS ORDERED: Ketorolac Tromethamine 30 MG/ML VIAL ONE (16:26)
[2018-08-31 16:27] LABS: Bilirubin Negative (Negative); Blood, Urine Negative (Negative); Clarity Hazy (Clear); Glucose, Urine (Dipstick) Negative (Negative); Leukocyte Negative (Negative); Nitrite Negative (Negative); Protein, Urine (Dipstick) 30 mg/dL (Neg-Trace); Specific Gravity, Urine 1.015 (1.005-1.030); Urobilinogen 0.2 mg/dL (0.2-1.0); pH, Urine 8.5 (5.0-9.0)
[2018-08-31 16:34] LABS: RBC/HPF None Seen HPF (0-3); WBC/HPF None Seen HPF (0-3)
[2018-08-31 16:35] LABS: Bacteria/HPF Rare-Few HPF (None Seen)
--- NOTE | 2018-08-31 18:33 | CT ---
CT ABDOMEN AND PELVIS WITH IV AND GI CONTRAST: 08/31/18 HISTORY: Persistent nausea with episodes of diarrhea. Right lower quadrant abdominal pain. COMPARISON: 09/21/17. FINDINGS: The lung bases are clear. The liver, spleen, pancreas, bilateral adrenal glands, kidneys, abdominal aorta, and urinary bladder demonstrate a normal CT appearance. There is a 2.8 cm hypodense cystic structure in the left adrenal region likely related to an ovarian cyst. The uterus and right adnexal structures have a grossly normal CT appearance. The right ureter is opacified and is not dilated. There is no hydronephrosis bilaterally. Loops of small bowel are mildly prominent but overall nonspecific. Contrast is seen within the colon and loops of small bowel. The cecum extends into the left aspect of the pelvis. The appendix is not v isualized on this examination. There is no cecal apical thickening appreciated. Fluid is seen within the left pericolic gutter which does abut the cecal apex. No enlarged lymph nodes are seen by CT size criteria and, there is no fluid collection seen. The rugal folds of the stomach do appear mildly prominent. Gastritis cannot be entirely excluded base d on this exam. IMPRESSION: 1. Small amount of free fluid in the pelvis which is more than expected for normal physiologica l fluid. However, the exact etiology for the fluid in the pelvis is uncertain. 2. Left ovarian cyst measuring 2.8 cm. 3. Nonvisualization of the appendix. There is fluid adjacent to the cecal apex, but there is no cecal apical thickening appreciated. POS: [facility]
[2018-08-31] MEDS ORDERED: Morphine 4 MG/ML VIAL ONE (18:59)
[2018-09-02 09:18] LABS: Chlamydia by PCR Not Detected (NotDetected); GC by PCR Not Detected (NotDetected)
== END 2018-08-31 19:35 | disposition home or self-care (01) ==
LOC: SCSER 15:30
DX: K92.1 Melena (principal); K64.4 Residual hemorrhoidal skin tags; R11.2 Nausea with vomiting, unspecified; R10.31 Right lower quadrant pain; R10.32 Left lower quadrant pain; F41.9 Anxiety disorder, unspecified; F32.9 Major depressive disorder, single episode, unspecified; F17.210 Nicotine dependence, cigarettes, uncomplicated; Z79.899 Other long term (current) drug therapy
CPT/HCPCS: 74177; 80053; 81003; 81015; 82274; 83690; 84703; 85025; 85610; 85730; 87480; 87491; 87510; 87591; 87660; 96361; 96374; 96375; J1885; J2270; J2405; Q9967